=== PATIENT | female | born 1970 | race Caucasian/White ===

== ENCOUNTER 2017-05-15 20:29 | Emergency (ER) | payer MEDICAID, OTHER ==
[~2017-05-15] VITALS: Ht 157.5 cm; Wt 59.1 kg
[2017-05-15] MEDS ORDERED: LORazepam 2 MG/ML VIAL IM ONE (20:45)
[2017-05-15 21:35] VITALS: BP 129/81
== END 2017-05-15 21:39 | disposition home or self-care (01) ==
LOC: EMS 20:29
DX: R45.1 Restlessness and agitation (principal); F15.10 Other stimulant abuse, uncomplicated; F17.210 Nicotine dependence, cigarettes, uncomplicated; Z02.89 Encounter for other administrative examinations
CPT/HCPCS: 96372; 99283; J2060

== ENCOUNTER 2022-08-27 18:19 | Inpatient (IN) | payer MEDICAID, OTHER ==
[~2022-08-27] VITALS: Ht 165.1 cm; Wt 63.7 kg
[2022-08-27 19:01] LABS: APPEARANCE,URINE CLEAR (CLEAR); BILIRUBIN,URINE NEGATIVE (NEGATIVE); GLUCOSE, URINE (UA) NEGATIVE (NEGATIVE); KETONES,URINE NEGATIVE (NEGATIVE); LEUKOCYTE ESTERASE ,URINE MODERATE (NEGATIVE); NITRATE,URINE NEGATIVE (NEGATIVE); OCCULT BLOOD,URINE NEGATIVE (NEGATIVE); PH,URINE 5.5 (5.0-8.0); PROTEIN,URINE NEGATIVE (NEGATIVE); SPECIFIC GRAVITIY, URINE 1.022 (1.003-1.030); UROBILINOGEN,URINE <=1.0 mg/dL (<=1.0)
[2022-08-27 19:08] LABS: AMPHET/METH SCREEN,URINE NEGATIVE (NEGATIVE); BARBITURATE SCREEN, URINE NEGATIVE (NEGATIVE); BENZODIAZEPINES SCREEN,URINE NEGATIVE (NEGATIVE); CANNABINOID SCREEN,URINE POSITIVE (NEGATIVE); COCAINE SCREEN,URINE NEGATIVE (NEGATIVE); METHADONE SCREEN, URINE NEGATIVE (NEGATIVE); OPIATE SCREEN,URINE NEGATIVE (NEGATIVE); PHENCYCLIDINE SCREEN,URINE NEGATIVE (NEGATIVE)
[2022-08-27 19:11] LABS: BASOPHILS % (AUTO) 0.9 % (0.0-2.0); EOSINOPHILS % (AUTO) 2.5 % (1.0-6.0); HEMATOCRIT 38.5 % (36-46); HEMOGLOBIN 12.5 g/dL (12.0-16.0); LYMPHOCYTES # (AUTO) 2.6 K/uL (1.0-4.8); LYMPHOCYTES % (AUTO) 46.9 % (22.0-44.0); MEAN CORPUSCULAR HEMOGLOBIN 28.3 pg (26.0-34.0); MEAN CORPUSCULAR HGB CONC 32.6 G/dL (31.0-37.0); MEAN CORPUSCULAR VOLUME 87 fL (80-100); MONOCYTES # (AUTO) 0.4 K/uL (0.1-1.0); MONOCYTES % (AUTO) 7.1 % (2.0-9.0); NEUTROPHILS # (AUTO) 2.4 K/uL (1.8-7.7); NEUTROPHILS % (AUTO) 42.6 % (40.0-70.0); PLATELET COUNT (AUTO) 216 K/uL (150-450); RED BLOOD CELL COUNT(AUTO) 4.43 MIL/uL (4.00-5.20); RED CELL DISTRIBUTION WIDTH 15.3 % (11.5-14.5)
[2022-08-27 19:18] LABS: ANION GAP 5 mmol/L (8-16); CALCIUM, TOTAL 9.2 mg/dL (8.8-10.5); CARBON DIOXIDE 29 mmol/L (22-29); CHLORIDE 102 mmol/L (98-107); CREATININE 0.48 mg/dL (0.60-1.30); GLOMERULAR FILTR. RATE CALC > 60 mL/min (>60); GLUCOSE,RANDOM 90 mg/dL (70-110); POTASSIUM 4.2 mmol/L (3.5-5.1); SODIUM SERUM 136 mmol/L (136-145)
[2022-08-27 19:22] LABS: BACTERIA,URINE Few /HPF (None Seen); RBC,URINE 0-2 /HPF (0-2); SQUAMOUS EPITHELIAL CELL,UR Few /LPF (None Seen)
[2022-08-27 19:37] LABS: ALANINE AMINOTRANSFERASE 80 U/L (12-78); ALBUMIN 3.6 g/dL (3.4-5.0); ALKALINE PHOSPHATASE 66 U/L (46-116); ASPARTATE AMINOTRANSFERASE 28 U/L (15-37); BILIRUBIN,TOTAL 0.2 mg/dL (0.1-1.0); HCG,QUANTITATIVE 4 mIU/mL (0-6); THYROID STIMULATING HORMONE 1.93 uIU/mL (0.36-3.74); TOTAL PROTEIN, SERUM 7.8 g/dL (6.4-8.2)
[2022-08-28] MEDS: LORazepam 2 MG TABLET PO PRN ×2 (02:22→20:46)
[2022-08-28] MEDS: HALOPERIDOL 5 MG TABLET PO PRN (02:22)
[2022-08-28 02:35] LABS: COVID AG,FIA SOURCE NASOPHARYNGEAL
[2022-08-28] MEDS ORDERED: IBUPROFEN 600 MG TABLET PO ONE (13:30)
[2022-08-28 17:41] VITALS: BP 111/76; PULSE 75; RESP 18; TEMP 97; O2SAT 99
[2022-08-28] MEDS: ZOLPIDEM TARTRATE 10 MG TABLET PO PRN (20:46)
[2022-08-28] MEDS ORDERED: CloNIDine HCL 0.1 MG TABLET PO PRN (21:15)
[2022-08-28] MEDS ORDERED: ALBUTEROL SULFATE HFA 90 MCG/PUFF 8 GM INHALER IH PRN (21:15)
[2022-08-28] MEDS ORDERED: ACETAMINOPHEN 325 MG TABLET PO PRN (21:15)
[2022-08-28] MEDS ORDERED: LOPERAMIDE HCL 2 MG CAPSULE PO PRN (21:15)
[2022-08-28] MEDS ORDERED: PETROLATUM,WHITE 28 GM JELLY TP PRN (21:15)
[2022-08-28] MEDS ORDERED: DOCUSATE SODIUM 100 MG CAPSULE PO PRN (21:15)
[2022-08-28] MEDS ORDERED: MAG HYDROX/AL HYDROX/SIMETH ES 30 ML SUSPENSION UDCUP PO PRN (21:15)
[2022-08-28] MEDS ORDERED: IBUPROFEN 400 MG TABLET PO PRN (21:15)
[2022-08-28] MEDS ORDERED: ONDANSETRON HCL 4 MG TABLET PO PRN (21:15)
[2022-08-28] MEDS ORDERED: NICOTINE 14 MG/24 HOUR PATCH TD PRN (21:15)
[2022-08-28] MEDS ORDERED: GuaiFENesin/D-METHORPHAN [SUGAR-FREE] 200-20MG/10 ML SYRUP UDCUP PO PRN (21:15)
[2022-08-28] MEDS ORDERED: MAGNESIUM HYDROXIDE SUSPENSION 30 ML UDCUP PO PRN (21:15)
[2022-08-28 22:09] VITALS: BP 115/74; PULSE 78; RESP 18; TEMP 97.2
[2022-08-28] MEDS: DENTURE CLEANSER TABLET [8'S] DT PRN (22:53)
[2022-08-29 08:41] LABS: BASOPHILS % (AUTO) 0.9 % (0.0-2.0); EOSINOPHILS % (AUTO) 3.1 % (1.0-6.0); HEMATOCRIT 37.9 % (36-46); HEMOGLOBIN 12.7 g/dL (12.0-16.0); LYMPHOCYTES % (AUTO) 37.9 % (22.0-44.0); MEAN CORPUSCULAR HEMOGLOBIN 28.9 pg (26.0-34.0); MEAN CORPUSCULAR HGB CONC 33.7 G/dL (31.0-37.0); MEAN CORPUSCULAR VOLUME 86 fL (80-100); MONOCYTES # (AUTO) 0.3 K/uL (0.1-1.0); MONOCYTES % (AUTO) 5.3 % (2.0-9.0); NEUTROPHILS # (AUTO) 2.8 K/uL (1.8-7.7); NEUTROPHILS % (AUTO) 52.8 % (40.0-70.0); PLATELET COUNT (AUTO) 209 K/uL (150-450); RED BLOOD CELL COUNT(AUTO) 4.41 MIL/uL (4.00-5.20)
[2022-08-29 08:49] LABS: HEMOGLOBIN A1C 5.6 % (3.8-5.6)
[2022-08-29 08:51] VITALS: BP 97/58; PULSE 67; RESP 18; TEMP 97.6; O2SAT 97
[2022-08-29 09:03] LABS: ALANINE AMINOTRANSFERASE 83 U/L (12-78); ALBUMIN 3.4 g/dL (3.4-5.0); ALKALINE PHOSPHATASE 64 U/L (46-116); ANION GAP 9 mmol/L (8-16); ASPARTATE AMINOTRANSFERASE 31 U/L (15-37); BILIRUBIN,TOTAL 0.4 mg/dL (0.1-1.0); CALCIUM, TOTAL 9.2 mg/dL (8.8-10.5); CARBON DIOXIDE 28 mmol/L (22-29); CHLORIDE 100 mmol/L (98-107); CHOL/HDL RATIO 3.1 (3.9-5.7); CHOLESTEROL 199 mg/dL (131-200); CREATININE 0.55 mg/dL (0.60-1.30); GLOMERULAR FILTR. RATE CALC > 60 mL/min (>60); GLUCOSE,RANDOM 155 mg/dL (70-110); HDL CHOLESTEROL 64 mg/dL (40-60); POTASSIUM 3.9 mmol/L (3.5-5.1); SODIUM SERUM 137 mmol/L (136-145); TOTAL PROTEIN, SERUM 7.7 g/dL (6.4-8.2); TRIGLYCERIDES 99 mg/dL (15-150)
[2022-08-29 09:04] LABS: LDL CHOL (CALC.) 115 mg/dL (0-130); THYROID STIMULATING HORMONE 1.97 uIU/mL (0.36-3.74)
[2022-08-29] MEDS: OLANZapine 5 MG TABLET PO SCH (10:47)
[2022-08-29] MEDS: LORazepam 2 MG TABLET PO PRN ×3 (10:47→17:20)
[2022-08-29] MEDS: OLANZapine 10 MG TABLET PO SCH ×2 (16:01→21:28)
[2022-08-29] MEDS: HALOPERIDOL 5 MG TABLET PO PRN (17:21)
[2022-08-29 21:06] VITALS: BP 100/64; PULSE 70; RESP 18; TEMP 97.6; O2SAT 97
[2022-08-29] MEDS: ZOLPIDEM TARTRATE 10 MG TABLET PO PRN (21:28)
[2022-08-29] MEDS: DENTURE CLEANSER TABLET [8'S] DT PRN (23:14)
[2022-08-30 08:30] VITALS: RESP 18
[2022-08-30] MEDS: OLANZapine 5 MG TABLET PO SCH (08:31)
[2022-08-30] MEDS: OLANZapine 10 MG TABLET PO SCH (21:11)
[2022-08-30] MEDS: ZOLPIDEM TARTRATE 10 MG TABLET PO PRN (21:12)
[2022-08-30 21:32] VITALS: BP 123/68; PULSE 80; RESP 19; TEMP 97.2; O2SAT 99
[2022-08-31] MEDS: OLANZapine 5 MG TABLET PO SCH (07:46)
[2022-08-31 08:27] VITALS: BP 118/64; PULSE 71; RESP 17; TEMP 97.8; O2SAT 96
[2022-08-31] MEDS ORDERED: OLAN5TAB52 PO (10:17)
[2022-08-31] MEDS ORDERED: OLAN10TA74 PO (10:17)
== END 2022-08-31 16:30 | DRG 750 ==
LOC: EMS 18:23 → 3EC 08-28 16:02
PROVIDERS: ADMIT Psychiatry & Neurology Child & Adolescent Psychiatry; ATTEND Psychiatry & Neurology Child & Adolescent Psychiatry
DX: F25.0 Schizoaffective disorder, bipolar type (principal); E86.0 Dehydration; D64.9 Anemia, unspecified; Z60.8 Other problems related to social environment; G47.00 Insomnia, unspecified; R74.01 Elevation of levels of liver transaminase levels; Z20.822 Contact with and (suspected) exposure to COVID-19; Z89.511 Acquired absence of right leg below knee; Z87.891 Personal history of nicotine dependence
CPT/HCPCS: 80053; 80061; 80307; 81001; 83036; 84443; 84702; 85025; 87081; 99285; G0480

== ENCOUNTER 2023-05-12 16:29 | Inpatient (IN) | payer MEDICAID, OTHER ==
[~2023-05-12] VITALS: Ht 162.6 cm; Wt 61.7 kg
[~2023-05-12 16:29] MED LIST: OLAN10TA74 PO; OLAN5TAB52 PO
[2023-05-12 19:19] LABS: APPEARANCE,URINE CLEAR (CLEAR); BILIRUBIN,URINE NEGATIVE (NEGATIVE); COLOR,URINE YELLOW (YELLOW); GLUCOSE, URINE (UA) NEGATIVE (NEGATIVE); KETONES,URINE NEGATIVE (NEGATIVE); LEUKOCYTE ESTERASE ,URINE LARGE (NEGATIVE); NITRATE,URINE NEGATIVE (NEGATIVE); OCCULT BLOOD,URINE NEGATIVE (NEGATIVE); PH,URINE 7.5 (5.0-8.0); PH,URINE DRUG SCREEN 7.5 (5.0-8.0); PROTEIN,URINE TRACE mg/dL (NEGATIVE); SPECIFIC GRAVITIY, URINE 1.029 (1.003-1.030)
[2023-05-12 19:24] LABS: ALCOHOL, URINE DRUG SCREEN NEGATIVE (NEGATIVE); AMPHET/METH SCREEN,URINE NEGATIVE (NEGATIVE); BARBITURATE SCREEN, URINE NEGATIVE (NEGATIVE); BENZODIAZEPINES SCREEN,URINE NEGATIVE (NEGATIVE); CANNABINOID SCREEN,URINE NEGATIVE (NEGATIVE); COCAINE SCREEN,URINE NEGATIVE (NEGATIVE); METHADONE SCREEN, URINE NEGATIVE (NEGATIVE); OPIATE SCREEN,URINE NEGATIVE (NEGATIVE); PHENCYCLIDINE SCREEN,URINE NEGATIVE (NEGATIVE)
[2023-05-12 19:54] LABS: RBC,URINE None Seen /HPF (0-2); SQUAMOUS EPITHELIAL CELL,UR Few /LPF (None Seen)
[2023-05-12 19:55] LABS: BACTERIA,URINE Rare /HPF (None Seen)
[2023-05-12 21:35] LABS: BASOPHILS % (AUTO) 0.9 % (0.0-2.0); EOSINOPHILS % (AUTO) 3.6 % (1.0-6.0); HEMATOCRIT 37.2 % (36-46); HEMOGLOBIN 12.6 g/dL (12.0-16.0); LYMPHOCYTES # (AUTO) 2.4 K/uL (1.0-4.8); LYMPHOCYTES % (AUTO) 46.5 % (22.0-44.0); MEAN CORPUSCULAR HEMOGLOBIN 30.4 pg (26.0-34.0); MEAN CORPUSCULAR HGB CONC 33.8 G/dL (31.0-37.0); MEAN CORPUSCULAR VOLUME 90 fL (80-100); MONOCYTES # (AUTO) 0.4 K/uL (0.1-1.0); MONOCYTES % (AUTO) 8.6 % (2.0-9.0); NEUTROPHILS # (AUTO) 2.1 K/uL (1.8-7.7); NEUTROPHILS % (AUTO) 40.4 % (40.0-70.0); PLATELET COUNT (AUTO) 238 K/uL (150-450); RED BLOOD CELL COUNT(AUTO) 4.15 MIL/uL (4.00-5.20); WHITE BLOOD COUNT (AUTO) 5.1 K/uL (4.5-11.0)
[2023-05-12 21:48] LABS: ALANINE AMINOTRANSFERASE 78 U/L (12-78); ALKALINE PHOSPHATASE 47 U/L (46-116); ASPARTATE AMINOTRANSFERASE 44 U/L (15-37); BILIRUBIN,TOTAL 0.2 mg/dL (0.1-1.0); CALCIUM, TOTAL 8.8 mg/dL (8.8-10.5); CARBON DIOXIDE 33 mmol/L (22-29); CREATININE 0.62 mg/dL (0.60-1.30); GLOMERULAR FILTR. RATE CALC > 60 mL/min (>60); GLUCOSE,RANDOM 111 mg/dL (70-110); TOTAL PROTEIN, SERUM 6.8 g/dL (6.4-8.2); UREA NITROGEN, BLOOD 20 mg/dL (7-18)
[2023-05-12 21:50] LABS: ALCOHOL, BLOOD (SERUM) < 3 mg/dL (0-10)
[2023-05-12 22:03] LABS: ANION GAP 5 mmol/L (8-16); CHLORIDE 102 mmol/L (98-107); POTASSIUM 3.7 mmol/L (3.5-5.1); SODIUM SERUM 140 mmol/L (136-145)
[2023-05-12 22:04] LABS: ALBUMIN 3.1 g/dL (3.4-5.0)
[2023-05-12 23:15] LABS: COVID AG,FIA SOURCE NASAL SWAB
[2023-05-12 23:38] LABS: SARS-COV2 (COVID) ANTIGEN,FIA Negative (Negative)
[2023-05-13] MEDS: CEPHALEXIN MONOHYDRATE 500 MG CAPSULE PO ONE (01:25)
[2023-05-13] MEDS ORDERED: BACITRACIN 28 GM OINTMENT TP PRN (05:45)
[2023-05-13] MEDS ORDERED: ALBUTEROL SULFATE HFA 90 MCG/PUFF 8 GM INHALER IH PRN (05:45)
[2023-05-13] MEDS ORDERED: ONDANSETRON HCL 4 MG TABLET PO PRN (05:45)
[2023-05-13] MEDS ORDERED: OMEPRAZOLE 20 MG CAPSULE PO PRN (05:45)
[2023-05-13] MEDS ORDERED: BENZOCAINE/MENTHOL LOZENGE PO PRN (05:45)
[2023-05-13] MEDS ORDERED: CloNIDine HCL 0.1 MG TABLET PO PRN (05:45)
[2023-05-13] MEDS ORDERED: MAG HYDROX/ALUMINUM HYD/SIMETH ES 30 ML SUSPENSION UDCUP PO PRN (05:45)
[2023-05-13] MEDS ORDERED: LOPERAMIDE HCL 2 MG CAPSULE PO PRN (05:45)
[2023-05-13 09:00] VITALS: BP 119/68; PULSE 76; RESP 16; TEMP 97.5; O2SAT 98
[2023-05-13] MEDS: CEPHALEXIN MONOHYDRATE 500 MG CAPSULE PO SCH (09:27)
[2023-05-13] MEDS: IBUPROFEN 600 MG TABLET PO PRN (09:27)
[2023-05-13] MEDS: LORazepam 2 MG TABLET PO PRN (09:27)
[2023-05-13 20:45] VITALS: BP 118/68; PULSE 91; RESP 18; TEMP 97.8; O2SAT 98
[2023-05-14 08:51] VITALS: RESP 18
[2023-05-14] MEDS ORDERED: INFLUENZA VIRUS VACCINE QVS 2023-24 (6MO+)/PF 60 MCG/0.5 ML SYRINGE IM. ONE (12:00)
[2023-05-14] MEDS: OLANZapine 7.5 MG TABLET PO SCH (20:03)
[2023-05-15 03:39] VITALS: RESP 16
[2023-05-15 08:23] VITALS: BP 111/74; PULSE 74; RESP 16; TEMP 97.6; O2SAT 97
[2023-05-15] MEDS ORDERED: HALOPERIDOL LACTATE 5 MG/ML VIAL ONE (17:28)
[2023-05-15] MEDS ORDERED: DiphenhydrAMINE HCL 50 MG/ML VIAL ONE (17:28)
[2023-05-15] MEDS: DiphenhydrAMINE HCL 50 MG/ML VIAL IM ONE (17:39)
[2023-05-15] MEDS: LORazepam 2 MG/ML VIAL IM ONE (17:39)
[2023-05-15] MEDS: HALOPERIDOL LACTATE 5 MG/ML VIAL IM ONE (17:40)
[2023-05-15 21:28] VITALS: BP 97/70; PULSE 85; RESP 15; TEMP 97.4; O2SAT 95
[2023-05-16 08:14] VITALS: RESP 18
[2023-05-16 21:56] VITALS: BP 109/78; PULSE 100; RESP 18; TEMP 97.2; O2SAT 98
[2023-05-17 08:22] VITALS: BP 116/78; PULSE 79; RESP 16; TEMP 97.6; O2SAT 98
[2023-05-17] MEDS ORDERED: TRAZ-252 PO (17:09)
[2023-05-17] MEDS ORDERED: FLUO20CA36 PO (17:09)
[2023-05-17] MEDS: DiphenhydrAMINE HCL 50 MG/ML VIAL IM ONE (17:41)
[2023-05-17 18:23] VITALS: BP 118/77; PULSE 78; RESP 17; TEMP 97.7
[2023-05-17] MEDS: ACETAMINOPHEN 325 MG TABLET PO PRN (18:24)
[2023-05-17] MEDS: NICOTINE 21 MG/24 HOUR PATCH TD SCH (18:24)
[2023-05-17 20:09] VITALS: BP 124/77; PULSE 71; RESP 17; TEMP 97.8
[2023-05-17] MEDS: BENZTROPINE MESYLATE 2 MG TABLET PO SCH (20:22)
[2023-05-17] MEDS: OLANZapine 10 MG TABLET PO SCH (22:00)
[2023-05-18] MEDS: HALOPERIDOL 5 MG TABLET PO PRN (07:59)
[2023-05-18 08:31] VITALS: BP 105/64; PULSE 84; RESP 18; TEMP 98; O2SAT 99
[2023-05-18 20:30] VITALS: BP 120/69; PULSE 87; RESP 16; TEMP 97.8; O2SAT 98
[2023-05-19 09:19] VITALS: BP 118/67; PULSE 70; RESP 18; TEMP 97.6; O2SAT 98
[2023-05-19 21:46] VITALS: BP 112/67; PULSE 88; RESP 16; TEMP 97.4; O2SAT 98
[2023-05-20 08:35] VITALS: BP 112/58; PULSE 67; RESP 18; TEMP 96.9; O2SAT 99
[2023-05-20 20:16] VITALS: BP 127/78; PULSE 86; TEMP 98.4; O2SAT 98
[2023-05-21 08:36] VITALS: BP 114/74; PULSE 82; RESP 16; TEMP 97.9; O2SAT 99
[2023-05-21 23:49] VITALS: BP 132/74; PULSE 83; RESP 18; TEMP 98; O2SAT 97
[2023-05-22 08:55] VITALS: BP 100/63; PULSE 70; RESP 16; TEMP 97.9; O2SAT 98
[2023-05-22] MEDS: ZOLPIDEM TARTRATE 10 MG TABLET PO PRN (20:06)
[2023-05-22 21:52] VITALS: BP 125/76; PULSE 79; RESP 16; TEMP 97.8; O2SAT 99
[2023-05-23 09:46] VITALS: BP 112/61; PULSE 100; RESP 17; TEMP 97.8; O2SAT 98
[2023-05-23 20:34] VITALS: BP 134/74; PULSE 100; RESP 18; TEMP 98; O2SAT 98
[2023-05-24] MEDS: PETROLATUM,WHITE 28 GM JELLY TP PRN (08:25)
[2023-05-24 08:44] VITALS: BP 100/65; PULSE 94; RESP 18; TEMP 97.6; O2SAT 99
[2023-05-24] MEDS: MAGNESIUM HYDROXIDE SUSPENSION 30 ML UDCUP PO PRN (09:30)
[2023-05-24 10:00] VITALS: BP 105/60; PULSE 80; RESP 18
[2023-05-24] MEDS: OLANZapine 7.5 MG TABLET PO SCH (20:12)
[2023-05-24 22:38] VITALS: BP 110/68; PULSE 78; RESP 18; TEMP 98.2
[2023-05-25 08:27] VITALS: BP 112/72; PULSE 82; RESP 16; TEMP 98; O2SAT 96
[2023-05-25 21:54] VITALS: BP 106/69; PULSE 79; RESP 16; TEMP 98; O2SAT 98
[2023-05-26 08:24] VITALS: BP 117/65; PULSE 85; RESP 18; TEMP 97.6; O2SAT 100
[2023-05-26 20:15] VITALS: BP 121/77; PULSE 90; RESP 20; TEMP 97.6; O2SAT 99
[2023-05-27 08:32] VITALS: BP 118/73; PULSE 82; RESP 16; TEMP 98; O2SAT 99
[2023-05-27 21:02] VITALS: BP 117/67; PULSE 96; RESP 18; TEMP 97.4; O2SAT 96
[2023-05-28 08:17] VITALS: BP 104/64; PULSE 91; RESP 17; TEMP 97.6; O2SAT 99
[2023-05-28 21:10] VITALS: BP 117/61; PULSE 89; RESP 17; TEMP 97.1; O2SAT 100
[2023-05-29 08:15] VITALS: BP 112/74; PULSE 76; RESP 16; TEMP 97.6; O2SAT 98
[2023-05-29 12:00] VITALS: BP 106/66; PULSE 99; RESP 16; TEMP 97.7; O2SAT 100
[2023-05-29] MEDS: DOCUSATE SODIUM 100 MG CAPSULE PO PRN (12:00)
[2023-05-29 20:35] VITALS: BP 119/75; PULSE 100; RESP 18; TEMP 98; O2SAT 100
[2023-05-29 23:35] VITALS: RESP 18
[2023-05-30 00:39] VITALS: RESP 16
[2023-05-30 08:23] VITALS: BP 107/63; PULSE 91; RESP 18; TEMP 97.8; O2SAT 98
[2023-05-30 22:20] VITALS: BP 108/60; PULSE 98; RESP 18; TEMP 96.7; O2SAT 96
[2023-05-31 08:39] VITALS: BP 126/74; PULSE 84; RESP 16; TEMP 98; O2SAT 99
[2023-05-31 20:14] VITALS: BP 108/65; PULSE 94; RESP 18; TEMP 97.7; O2SAT 98
[2023-06-01 09:34] VITALS: BP 101/57; PULSE 93; RESP 18; TEMP 97.8; O2SAT 97
[2023-06-01 20:00] VITALS: BP 110/62; PULSE 100; RESP 19; TEMP 97.9; O2SAT 98
[2023-06-02 08:15] VITALS: BP 100/61; PULSE 77; RESP 16; TEMP 97.8; O2SAT 100
[2023-06-02 20:21] VITALS: BP 107/64; PULSE 87; RESP 18; TEMP 97.7; O2SAT 87
[2023-06-03 08:47] VITALS: BP 102/66; PULSE 77; RESP 16; TEMP 97.9; O2SAT 97
[2023-06-03 20:04] VITALS: BP 101/61; PULSE 84; RESP 17; TEMP 97; O2SAT 99
[2023-06-04 08:07] VITALS: BP 106/62; PULSE 83; RESP 16; TEMP 97.6; O2SAT 98
[2023-06-04 20:46] VITALS: BP 117/70; PULSE 97; RESP 18; TEMP 97.5; O2SAT 98
[2023-06-05 08:30] VITALS: BP 112/64; PULSE 74; RESP 16; TEMP 98.2; O2SAT 97
[2023-06-05 22:09] VITALS: BP 102/59; PULSE 79; RESP 18; TEMP 97.8; O2SAT 97
[2023-06-06 11:38] VITALS: BP 109/68; PULSE 71; RESP 18; TEMP 97.7; O2SAT 99
[2023-06-06 22:44] VITALS: BP 115/70; PULSE 68; RESP 17; TEMP 97.5; O2SAT 97
[2023-06-07 08:11] VITALS: BP 113/76; PULSE 83; RESP 16; TEMP 97.6; O2SAT 98
[2023-06-07 20:09] VITALS: BP 102/61; PULSE 93; RESP 18; TEMP 97.8; O2SAT 98
[2023-06-08 08:13] VITALS: BP 104/66; PULSE 72; RESP 16; TEMP 97.6; O2SAT 96
[2023-06-08 20:09] VITALS: BP 106/67; PULSE 85; RESP 17; TEMP 96.6; O2SAT 100
[2023-06-09 08:03] VITALS: BP 110/61; PULSE 78; RESP 18; TEMP 97.9; O2SAT 99
[2023-06-09 21:55] VITALS: BP 132/79; PULSE 76; RESP 19; TEMP 96.7; O2SAT 99
[2023-06-10 08:28] VITALS: BP 100/65; PULSE 72; RESP 16; TEMP 97.6; O2SAT 96
[2023-06-10] MEDS ORDERED: BENZ2TAB71 PO (13:46)
[2023-06-10] MEDS ORDERED: OLAN7.5T22 PO (13:48)
== END 2023-06-10 15:01 | disposition home or self-care (01) | DRG 750 ==
LOC: EMS 16:34 → B3A 05-13 03:32
PROVIDERS: ADMIT Psychiatry & Neurology Psychiatry; ATTEND Psychiatry & Neurology Psychiatry
DX: F25.0 Schizoaffective disorder, bipolar type (principal); R45.851 Suicidal ideations; F41.9 Anxiety disorder, unspecified; N39.0 Urinary tract infection, site not specified; G47.00 Insomnia, unspecified; K59.00 Constipation, unspecified; Z20.822 Contact with and (suspected) exposure to COVID-19; F15.10 Other stimulant abuse, uncomplicated; F10.90 Alcohol use, unspecified, uncomplicated; Z87.891 Personal history of nicotine dependence; Z89.511 Acquired absence of right leg below knee; Z79.899 Other long term (current) drug therapy
CPT/HCPCS: 80053; 80164; 80307; 81001; 85025; 87086; 87186; 99285; G0480; J1200; J1630; J2060

== ENCOUNTER 2023-09-21 11:34 | Inpatient (IN) | payer MEDICAID, OTHER ==
[~2023-09-21] VITALS: Ht 157.5 cm; Wt 60.9 kg
[~2023-09-21 11:34] MED LIST changes: +BENZ2TAB84 PO; -OLAN10TA74 PO; -OLAN5TAB52 PO; +OLAN7.5T22 PO
[2023-09-21 13:18] LABS: BASOPHILS % (AUTO) 0.5 % (0.0-2.0); HEMATOCRIT 34.6 % (36-46); HEMOGLOBIN 11.5 g/dL (12.0-16.0); LYMPHOCYTES # (AUTO) 2.1 K/uL (1.0-4.8); LYMPHOCYTES % (AUTO) 33.7 % (22.0-44.0); MEAN CORPUSCULAR HEMOGLOBIN 30.1 pg (26.0-34.0); MEAN CORPUSCULAR HGB CONC 33.3 G/dL (31.0-37.0); MEAN CORPUSCULAR VOLUME 90 fL (80-100); MONOCYTES # (AUTO) 0.4 K/uL (0.1-1.0); MONOCYTES % (AUTO) 6.8 % (2.0-9.0); NEUTROPHILS # (AUTO) 3.5 K/uL (1.8-7.7); PLATELET COUNT (AUTO) 213 K/uL (150-450); RED BLOOD CELL COUNT(AUTO) 3.83 MIL/uL (4.00-5.20); RED CELL DISTRIBUTION WIDTH 13.2 % (11.5-14.5); WHITE BLOOD COUNT (AUTO) 6.2 K/uL (4.5-11.0)
[2023-09-21 13:24] LABS: COVID AG,FIA SOURCE NASAL SWAB
[2023-09-21 13:26] LABS: ANION GAP 6 mmol/L (8-16); CALCIUM, TOTAL 8.3 mg/dL (8.8-10.5); CARBON DIOXIDE 29 mmol/L (22-29); CHLORIDE 105 mmol/L (98-107); CREATININE 0.51 mg/dL (0.60-1.30); GLOMERULAR FILTR. RATE CALC > 60 mL/min (>60); GLUCOSE,RANDOM 103 mg/dL (70-110); POTASSIUM 3.7 mmol/L (3.5-5.1); SODIUM SERUM 140 mmol/L (136-145); UREA NITROGEN, BLOOD 12 mg/dL (7-18)
[2023-09-21 13:28] LABS: ALCOHOL, BLOOD (SERUM) < 3 mg/dL (0-10)
[2023-09-21 13:46] LABS: SARS-COV2 (COVID) ANTIGEN,FIA Negative (Negative)
[2023-09-21 16:02] LABS: PH,URINE DRUG SCREEN 6.5 (5.0-8.0)
[2023-09-21 16:10] LABS: ALCOHOL, URINE DRUG SCREEN NEGATIVE (NEGATIVE); AMPHET/METH SCREEN,URINE POSITIVE (NEGATIVE); BARBITURATE SCREEN, URINE NEGATIVE (NEGATIVE); BENZODIAZEPINES SCREEN,URINE NEGATIVE (NEGATIVE); CANNABINOID SCREEN,URINE NEGATIVE (NEGATIVE); COCAINE SCREEN,URINE NEGATIVE (NEGATIVE); METHADONE SCREEN, URINE NEGATIVE (NEGATIVE); OPIATE SCREEN,URINE NEGATIVE (NEGATIVE); PHENCYCLIDINE SCREEN,URINE NEGATIVE (NEGATIVE)
[2023-09-21] MEDS ORDERED: ZOLPIDEM TARTRATE 10 MG TABLET PO PRN (19:00)
[2023-09-21] MEDS: HALOPERIDOL 5 MG TABLET PO PRN (20:07)
[2023-09-21] MEDS: LORazepam 2 MG TABLET PO PRN (20:08)
[2023-09-21 22:44] VITALS: O2SAT 98
[2023-09-22 00:37] VITALS: BP 108/59; PULSE 60; RESP 16; TEMP 97.6; O2SAT 97
[2023-09-22] MEDS ORDERED: IBUPROFEN 600 MG TABLET PO PRN (06:15)
[2023-09-22] MEDS ORDERED: BENZOCAINE/MENTHOL LOZENGE PO PRN (06:15)
[2023-09-22] MEDS ORDERED: BACITRACIN 28 GM OINTMENT TP PRN (06:15)
[2023-09-22] MEDS ORDERED: MAGNESIUM HYDROXIDE SUSPENSION 30 ML UDCUP PO PRN (06:15)
[2023-09-22] MEDS ORDERED: CloNIDine HCL 0.1 MG TABLET PO PRN (06:15)
[2023-09-22] MEDS ORDERED: LOPERAMIDE HCL 2 MG CAPSULE PO PRN (06:15)
[2023-09-22] MEDS ORDERED: ALBUTEROL SULFATE HFA 90 MCG/PUFF 8 GM INHALER IH PRN (06:15)
[2023-09-22] MEDS ORDERED: ACETAMINOPHEN 325 MG TABLET PO PRN (06:15)
[2023-09-22] MEDS ORDERED: MAG HYDROX/ALUMINUM HYD/SIMETH ES 30 ML SUSPENSION UDCUP PO PRN (06:15)
[2023-09-22] MEDS ORDERED: ONDANSETRON HCL 4 MG TABLET PO PRN (06:15)
[2023-09-22 11:32] VITALS: BP 110/68; PULSE 66; RESP 17; TEMP 98; O2SAT 97
[2023-09-22 20:27] VITALS: BP 115/65; PULSE 88; RESP 17; TEMP 97.1; O2SAT 98
[2023-09-22] MEDS: OLANZapine 7.5 MG TABLET PO SCH (20:35)
[2023-09-23 08:11] VITALS: BP 99/59; PULSE 54; RESP 16; TEMP 97.8; O2SAT 97
[2023-09-23 20:25] VITALS: BP 110/68; PULSE 67; RESP 17; TEMP 98.6; O2SAT 98
[2023-09-24 14:05] VITALS: BP 123/86; PULSE 102; RESP 18; TEMP 98.6; O2SAT 96
[2023-09-24 20:00] VITALS: BP 117/70; PULSE 92; RESP 16; TEMP 97.8; O2SAT 97
[2023-09-25 08:15] VITALS: BP 103/66; PULSE 90; RESP 16; TEMP 97.5; O2SAT 95
[2023-09-25 20:29] VITALS: BP 112/70; PULSE 83; RESP 18; TEMP 96.8; O2SAT 95
[2023-09-26 08:18] VITALS: BP 111/79; PULSE 100; RESP 16; TEMP 97.3; O2SAT 96
[2023-09-26 20:50] VITALS: BP 118/64; PULSE 85; RESP 17; TEMP 97.2; O2SAT 98
[2023-09-27 08:21] VITALS: BP 108/75; PULSE 69; RESP 16; TEMP 98.2; O2SAT 96
[2023-09-27 21:20] VITALS: BP 106/70; PULSE 84; RESP 17; TEMP 96.8; O2SAT 98
[2023-09-28 18:03] VITALS: BP 110/71; PULSE 86; RESP 17; TEMP 97.2
[2023-09-28 20:50] VITALS: BP 110/74; PULSE 84; RESP 16; TEMP 97.5; O2SAT 98
[2023-09-29 08:49] LABS: APPEARANCE,URINE CLEAR (CLEAR); BILIRUBIN,URINE NEGATIVE (NEGATIVE); COLOR,URINE LIGHT YELLOW (YELLOW); GLUCOSE, URINE (UA) NEGATIVE (NEGATIVE); KETONES,URINE NEGATIVE (NEGATIVE); LEUKOCYTE ESTERASE ,URINE NEGATIVE (NEGATIVE); NITRATE,URINE NEGATIVE (NEGATIVE); OCCULT BLOOD,URINE NEGATIVE (NEGATIVE); PH,URINE 7.5 (5.0-8.0); PROTEIN,URINE NEGATIVE (NEGATIVE); SPECIFIC GRAVITIY, URINE 1.021 (1.003-1.030); UROBILINOGEN,URINE <=1.0 mg/dL (<=1.0)
[2023-09-29 09:20] VITALS: BP 112/64; PULSE 90; RESP 17; TEMP 97.7; O2SAT 97
[2023-09-29 20:00] VITALS: BP 116/73; PULSE 77; RESP 16; TEMP 97.6; O2SAT 98
[2023-09-30 08:46] VITALS: BP 108/69; PULSE 98; RESP 16; TEMP 97.5; O2SAT 98
[2023-09-30 20:15] VITALS: BP 114/76; PULSE 76; RESP 16; TEMP 97.1; O2SAT 99
[2023-10-01 08:39] VITALS: BP 112/73; PULSE 97; RESP 16; TEMP 97; O2SAT 97
[2023-10-01] MEDS: OMEPRAZOLE 20 MG CAPSULE PO PRN (12:55)
[2023-10-01 20:26] VITALS: BP 110/63; PULSE 83; RESP 17; TEMP 97.3; O2SAT 98
[2023-10-02 08:19] VITALS: BP 112/67; PULSE 76; RESP 16; TEMP 97.6; O2SAT 99
[2023-10-02 20:00] VITALS: BP 116/73; PULSE 79; RESP 16; TEMP 97.5; O2SAT 98
[2023-10-03 08:10] VITALS: BP 110/70; PULSE 75; RESP 17; TEMP 98; O2SAT 99
[2023-10-03 20:00] VITALS: BP 111/64; PULSE 78; RESP 17; TEMP 98; O2SAT 99
[2023-10-04 08:18] VITALS: BP 100/62; PULSE 78; RESP 16; TEMP 97.9; O2SAT 97
[2023-10-04 23:24] VITALS: BP 110/66; PULSE 72; RESP 18; TEMP 97.2; O2SAT 99
[2023-10-05 09:28] VITALS: BP 103/62; PULSE 73; RESP 16; TEMP 97.6; O2SAT 95
[2023-10-05 20:00] VITALS: BP 120/65; PULSE 89; RESP 16; TEMP 97.3; O2SAT 98
[2023-10-06 08:13] VITALS: BP 117/67; PULSE 69; RESP 16; TEMP 97.8; O2SAT 96
[2023-10-06 20:12] VITALS: BP 118/74; PULSE 87; RESP 19; TEMP 98
[2023-10-07 08:23] VITALS: BP 96/60; PULSE 83; RESP 16; TEMP 97.4; O2SAT 95
[2023-10-07 20:12] VITALS: BP 121/77; PULSE 84; RESP 16; TEMP 97.3; O2SAT 97
[2023-10-08 08:17] VITALS: BP 111/62; PULSE 76; RESP 16; TEMP 97.8; O2SAT 99
[2023-10-08 22:31] VITALS: BP 108/71; PULSE 88; RESP 17; TEMP 97.8; O2SAT 97
[2023-10-09 08:04] VITALS: BP 98/60; PULSE 64; RESP 16; TEMP 97.4; O2SAT 98
[2023-10-09 20:29] VITALS: BP 112/74; PULSE 91; RESP 18; TEMP 98.4; O2SAT 97
[2023-10-10 08:18] VITALS: BP 107/68; PULSE 91; RESP 18; TEMP 97.6; O2SAT 97
[2023-10-10] MEDS: PETROLATUM,WHITE 28 GM JELLY TP PRN (20:09)
[2023-10-10 20:23] VITALS: BP 123/75; PULSE 96; RESP 17; TEMP 97.2; O2SAT 98
[2023-10-11 07:56] VITALS: BP 99/62; PULSE 79; RESP 16; TEMP 97.6; O2SAT 95
[2023-10-11 11:41] VITALS: BP 120/76; PULSE 82; RESP 16; TEMP 97.6; O2SAT 96
[2023-10-11 20:10] VITALS: BP 107/56; PULSE 75; RESP 16; TEMP 96.9; O2SAT 98
[2023-10-12 08:21] VITALS: BP 113/73; PULSE 78; RESP 16; TEMP 97.2; O2SAT 99
[2023-10-12] MEDS: NICOTINE 21 MG/24 HOUR PATCH TD SCH (18:50)
[2023-10-12 20:09] VITALS: BP 111/69; PULSE 78; RESP 18; TEMP 97.3; O2SAT 97
[2023-10-13 08:25] VITALS: RESP 18
[2023-10-13 21:10] VITALS: BP 112/67; PULSE 82; RESP 18; TEMP 97.9; O2SAT 98
[2023-10-14 08:09] VITALS: BP 116/72; PULSE 73; RESP 16; TEMP 96.9; O2SAT 95
[2023-10-14] MEDS: DOCUSATE SODIUM 100 MG CAPSULE PO PRN (09:34)
[2023-10-14 20:00] VITALS: BP 133/95; PULSE 76; RESP 16; TEMP 98; O2SAT 96
== END 2023-10-15 08:47 | disposition home or self-care (01) | DRG 750 ==
LOC: EMS 11:38 → B3A 23:16
PROVIDERS: ADMIT Psychiatry & Neurology Psychiatry; ATTEND Psychiatry & Neurology Psychiatry
DX: F25.9 Schizoaffective disorder, unspecified (principal); R45.851 Suicidal ideations; Z91.148 Patient's other noncompliance with medication regimen for other reason; F15.10 Other stimulant abuse, uncomplicated; Z20.822 Contact with and (suspected) exposure to COVID-19; F41.9 Anxiety disorder, unspecified; G47.00 Insomnia, unspecified; K59.00 Constipation, unspecified; Z87.891 Personal history of nicotine dependence; Z89.511 Acquired absence of right leg below knee
CPT/HCPCS: 80048; 80307; 81003; 84703; 85025; 99285; G0480

== ENCOUNTER 2023-12-05 17:16 | Inpatient (IN) | payer MEDICAID ==
[~2023-12-05] VITALS: Ht 160 cm; Wt 61.8 kg
[~2023-12-05 17:16] MED LIST changes: -BENZ2TAB84 PO
[2023-12-05 20:43] VITALS: BP 131/76; PULSE 78; RESP 18; TEMP 97; O2SAT 97
[2023-12-05 20:59] VITALS: BP 121/64; PULSE 81; RESP 18; TEMP 96.6
[2023-12-05 23:40] LABS: GLUCOMETER DEV NAME(LOC) POC.BV; POC SARS-COV2 AG, FIA NEGATIVE (NEGATIVE)
[2023-12-06 08:25] VITALS: RESP 18
[2023-12-06 09:08] LABS: APPEARANCE,URINE CLEAR (CLEAR); BILIRUBIN,URINE NEGATIVE (NEGATIVE); COLOR,URINE LIGHT YELLOW (YELLOW); GLUCOSE, URINE (UA) NEGATIVE (NEGATIVE); KETONES,URINE NEGATIVE (NEGATIVE); LEUKOCYTE ESTERASE ,URINE NEGATIVE (NEGATIVE); NITRATE,URINE NEGATIVE (NEGATIVE); OCCULT BLOOD,URINE NEGATIVE (NEGATIVE); PROTEIN,URINE NEGATIVE (NEGATIVE); SPECIFIC GRAVITIY, URINE 1.012 (1.003-1.030); UROBILINOGEN,URINE <=1.0 mg/dL (<=1.0)
[2023-12-06 09:16] LABS: ALCOHOL, URINE DRUG SCREEN NEGATIVE (NEGATIVE); AMPHET/METH SCREEN,URINE NEGATIVE (NEGATIVE); BARBITURATE SCREEN, URINE NEGATIVE (NEGATIVE); BENZODIAZEPINES SCREEN,URINE NEGATIVE (NEGATIVE); CANNABINOID SCREEN,URINE NEGATIVE (NEGATIVE); COCAINE SCREEN,URINE NEGATIVE (NEGATIVE); METHADONE SCREEN, URINE NEGATIVE (NEGATIVE); OPIATE SCREEN,URINE NEGATIVE (NEGATIVE); PHENCYCLIDINE SCREEN,URINE NEGATIVE (NEGATIVE)
[2023-12-06] MEDS ORDERED: LOPERAMIDE HCL 2 MG CAPSULE PO PRN (16:00)
[2023-12-06] MEDS ORDERED: ALBUTEROL SULFATE HFA 90 MCG/PUFF 8 GM INHALER IH PRN (16:00)
[2023-12-06] MEDS ORDERED: MAGNESIUM HYDROXIDE SUSPENSION 30 ML UDCUP PO PRN (16:00)
[2023-12-06] MEDS ORDERED: MAG HYDROX/ALUMINUM HYD/SIMETH ES 30 ML SUSPENSION UDCUP PO PRN (16:00)
[2023-12-06] MEDS ORDERED: OMEPRAZOLE 20 MG CAPSULE PO PRN (16:00)
[2023-12-06] MEDS ORDERED: ONDANSETRON 4 MG TABLET PO PRN (16:00)
[2023-12-06] MEDS ORDERED: CloNIDine HCL 0.1 MG TABLET PO PRN (16:00)
[2023-12-06] MEDS ORDERED: DOCUSATE SODIUM 100 MG CAPSULE PO PRN (16:00)
[2023-12-06] MEDS ORDERED: ACETAMINOPHEN 325 MG TABLET PO PRN (16:00)
[2023-12-06] MEDS ORDERED: BACITRACIN 28 GM OINTMENT TP PRN (16:00)
[2023-12-07 08:19] VITALS: BP 139/72; PULSE 80; RESP 17; TEMP 97.9; O2SAT 96
[2023-12-07] MEDS: OLANZapine 7.5 MG TABLET PO SCH (20:39)
[2023-12-07] MEDS: ZOLPIDEM TARTRATE 10 MG TABLET PO PRN (20:39)
[2023-12-07 21:12] VITALS: BP 99/61; PULSE 65; RESP 18; TEMP 97.3; O2SAT 97
[2023-12-08 08:12] VITALS: BP 127/63; PULSE 80; RESP 16; TEMP 97.3; O2SAT 100
[2023-12-08] MEDS: NICOTINE 14 MG/24 HOUR PATCH TD ONE (12:43)
[2023-12-08] MEDS: INFLUENZA VIRUS VACCINE TVS (6MO+) 2024-25/PF 45 MCG/0.5 ML SYRINGE IM. ONE (18:11)
[2023-12-08 20:17] VITALS: BP 121/77; PULSE 94; RESP 18; TEMP 97.6; O2SAT 99
[2023-12-09 08:20] VITALS: BP 111/77; PULSE 71; RESP 16; TEMP 97.9; O2SAT 98
[2023-12-09] MEDS: NICOTINE 21 MG/24 HOUR PATCH TD SCH (18:47)
[2023-12-09 21:07] VITALS: BP 124/75; PULSE 88; RESP 17; TEMP 97.6; O2SAT 100
[2023-12-10 15:23] VITALS: BP 106/70; PULSE 80; RESP 18; TEMP 96.5; O2SAT 100
[2023-12-10 20:22] VITALS: BP 115/76; PULSE 69; RESP 16; TEMP 96.2; O2SAT 100
[2023-12-11 08:16] VITALS: BP 112/77; PULSE 83; RESP 17; TEMP 97.1; O2SAT 98
[2023-12-11] MEDS: PETROLATUM,WHITE 28 GM JELLY TP PRN (12:53)
[2023-12-11] MEDS: LORazepam 2 MG TABLET PO PRN (14:45)
[2023-12-11 20:13] VITALS: BP 116/60; PULSE 86; RESP 16; TEMP 96.7; O2SAT 98
[2023-12-12 08:07] VITALS: BP 110/68; PULSE 73; RESP 17; TEMP 97.4; O2SAT 96
[2023-12-12] MEDS: IBUPROFEN 600 MG TABLET PO PRN (11:38)
[2023-12-12 21:11] VITALS: BP 115/70; PULSE 98; RESP 16; TEMP 98.1; O2SAT 99
[2023-12-13 08:22] VITALS: BP 102/74; PULSE 77; RESP 18; TEMP 97.9; O2SAT 100
[2023-12-13 11:05] LABS: BASOPHILS % (AUTO) 1.3 % (0.0-2.0); EOSINOPHILS % (AUTO) 3.2 % (1.0-6.0); HEMATOCRIT 40.4 % (36-46); HEMOGLOBIN 13.3 g/dL (12.0-16.0); LYMPHOCYTES # (AUTO) 1.7 K/uL (1.0-4.8); LYMPHOCYTES % (AUTO) 41.1 % (22.0-44.0); MEAN CORPUSCULAR HEMOGLOBIN 30.1 pg (26.0-34.0); MEAN CORPUSCULAR HGB CONC 32.8 G/dL (31.0-37.0); MEAN CORPUSCULAR VOLUME 92 fL (80-100); MONOCYTES # (AUTO) 0.3 K/uL (0.1-1.0); MONOCYTES % (AUTO) 7.5 % (2.0-9.0); NEUTROPHILS % (AUTO) 46.9 % (40.0-70.0); PLATELET COUNT (AUTO) 235 K/uL (150-450); RED CELL DISTRIBUTION WIDTH 14.3 % (11.5-14.5); WHITE BLOOD COUNT (AUTO) 4.2 K/uL (4.5-11.0)
[2023-12-13 11:27] LABS: ALANINE AMINOTRANSFERASE 183 U/L (12-78); ALBUMIN 3.4 g/dL (3.4-5.0); ALKALINE PHOSPHATASE 48 U/L (46-116); ANION GAP 8 mmol/L (8-16); ASPARTATE AMINOTRANSFERASE 82 U/L (15-37); BILIRUBIN,TOTAL 0.2 mg/dL (0.1-1.0); CALCIUM, TOTAL 9.2 mg/dL (8.8-10.5); CARBON DIOXIDE 28 mmol/L (22-29); CHLORIDE 102 mmol/L (98-107); CHOL/HDL RATIO 2.6 (3.9-5.7); CHOLESTEROL 217 mg/dL (131-200); CREATININE 0.39 mg/dL (0.60-1.30); GLOMERULAR FILTR. RATE CALC > 60 mL/min (>60); GLUCOSE,RANDOM 110 mg/dL (70-110); HDL CHOLESTEROL 83 mg/dL (40-60); LDL CHOL (CALC.) 113 mg/dL (0-130); POTASSIUM 4.4 mmol/L (3.5-5.1); SODIUM SERUM 138 mmol/L (136-145); TOTAL PROTEIN, SERUM 7.2 g/dL (6.4-8.2); TRIGLYCERIDES 106 mg/dL (15-150); UREA NITROGEN, BLOOD 24 mg/dL (7-18)
[2023-12-13 13:22] LABS: FREE T4 (FREE THYROXINE) 0.72 ng/dL (0.76-1.46); THYROID STIMULATING HORMONE 2.66 uIU/mL (0.36-3.74)
[2023-12-13 20:13] VITALS: BP 111/62; PULSE 78; RESP 15; TEMP 97; O2SAT 97
[2023-12-14 09:00] VITALS: BP 110/68; PULSE 86; RESP 18; TEMP 97.9; O2SAT 99
[2023-12-14 12:46] VITALS: RESP 18; O2SAT 99
[2023-12-14 13:46] VITALS: RESP 18
[2023-12-14 20:23] VITALS: BP 117/66; PULSE 90; RESP 18; TEMP 98; O2SAT 98
[2023-12-15 08:25] VITALS: BP 100/62; PULSE 82; RESP 17; TEMP 98; O2SAT 95
[2023-12-15 10:31] VITALS: RESP 18; O2SAT 96
[2023-12-15 11:31] VITALS: RESP 17; O2SAT 96
[2023-12-15 20:36] VITALS: BP 126/63; PULSE 86; RESP 18; TEMP 97.4; O2SAT 99
[2023-12-16 08:44] VITALS: BP 121/73; PULSE 68; RESP 16; TEMP 97.3; O2SAT 100
[2023-12-16 10:27] VITALS: RESP 18; O2SAT 100
[2023-12-16 11:27] VITALS: RESP 17; O2SAT 100
[2023-12-16 22:00] VITALS: BP 113/69; PULSE 83; RESP 17; TEMP 98.1; O2SAT 99
[2023-12-17 08:36] VITALS: BP 109/71; PULSE 72; RESP 19; TEMP 97.5; O2SAT 99
[2023-12-17 20:00] VITALS: BP 106/66; PULSE 82; RESP 18; TEMP 97.4; O2SAT 100
[2023-12-17 20:54] VITALS: RESP 18; O2SAT 98
[2023-12-17 21:54] VITALS: RESP 18; O2SAT 99
[2023-12-18 08:11] VITALS: BP 108/61; PULSE 63; RESP 17; TEMP 97.6; O2SAT 98
[2023-12-18] MEDS: HALOPERIDOL 5 MG TABLET PO PRN (14:57)
[2023-12-18 20:19] VITALS: BP 109/70; PULSE 81; RESP 16; TEMP 97.4; O2SAT 99
[2023-12-19 09:07] VITALS: BP 103/65; PULSE 60; RESP 16; TEMP 98; O2SAT 99
[2023-12-19 20:37] VITALS: BP 114/72; PULSE 85; RESP 16; TEMP 97.5; O2SAT 99
[2023-12-20 08:13] VITALS: BP 115/67; PULSE 84; RESP 16; TEMP 97.8; O2SAT 100
[2023-12-20 20:11] VITALS: BP_SYST 118; BP_SYST 155; BP_DIAS 65; BP_DIAS 68; PULSE 76; PULSE 78; RESP 16; TEMP 97.6; TEMP 98.5; O2SAT 100; O2SAT 98
[2023-12-20 21:11] VITALS: RESP 16; O2SAT 97
[2023-12-21 08:10] VITALS: BP 111/67; PULSE 70; RESP 18; TEMP 98.3; O2SAT 98
[2023-12-21 12:55] VITALS: RESP 18
[2023-12-21 13:55] VITALS: RESP 18
[2023-12-21 20:25] VITALS: BP 128/70; PULSE 87; RESP 16; TEMP 96.6; O2SAT 99
[2023-12-22 08:57] VITALS: BP 121/68; PULSE 74; RESP 18; TEMP 98; O2SAT 95
[2023-12-22 20:43] VITALS: BP 109/66; PULSE 91; RESP 16; TEMP 98; O2SAT 97
[2023-12-22 21:43] VITALS: BP 118/62; PULSE 82; RESP 18; TEMP 97.5; O2SAT 96
[2023-12-23 08:24] VITALS: BP 112/63; PULSE 87; RESP 19; TEMP 97.5; O2SAT 98
[2023-12-24 08:26] VITALS: BP 102/59; PULSE 77; RESP 18; TEMP 98.3; O2SAT 97
[2023-12-24 14:45] VITALS: RESP 17
[2023-12-24 15:45] VITALS: RESP 16
[2023-12-24 20:04] VITALS: BP 129/91; PULSE 86; RESP 18; TEMP 96.2
[2023-12-25 08:25] VITALS: RESP 16
[2023-12-25 20:42] VITALS: BP 105/66; PULSE 84; RESP 16; TEMP 97.4
[2023-12-26 08:09] VITALS: BP 96/61; PULSE 70; RESP 17; TEMP 97.7; O2SAT 95
[2023-12-26 20:18] VITALS: BP 111/74; PULSE 75; RESP 17; TEMP 97.6; O2SAT 96
[2023-12-27 08:46] VITALS: BP 104/66; PULSE 71; RESP 19; TEMP 97.4; O2SAT 97
[2023-12-27 21:06] VITALS: BP 111/69; PULSE 70; RESP 17; TEMP 97.5; O2SAT 98
[2023-12-28 08:07] VITALS: BP 114/67; PULSE 100; RESP 17; TEMP 97.6; O2SAT 97
[2023-12-28 20:09] VITALS: BP 120/65; PULSE 98; RESP 16; TEMP 98.5; O2SAT 98
[2023-12-28 21:00] VITALS: RESP 16; O2SAT 98
[2023-12-29 08:11] VITALS: BP 106/61; PULSE 97; RESP 16; TEMP 96.7; O2SAT 100
[2023-12-29] MEDS: BENZOCAINE/MENTHOL LOZENGE PO PRN (18:29)
[2023-12-29 20:16] VITALS: BP 123/77; PULSE 97; RESP 18; TEMP 97.3; O2SAT 97
[2023-12-30 08:03] VITALS: BP 107/73; PULSE 77; RESP 19; TEMP 96.5; O2SAT 98
[2023-12-30 10:11] VITALS: RESP 19; O2SAT 98
[2023-12-30 11:11] VITALS: RESP 18; O2SAT 98
[2023-12-30 20:31] VITALS: BP 128/72; PULSE 99; RESP 18; TEMP 98; O2SAT 96
[2023-12-31 08:41] VITALS: BP 112/63; PULSE 84; RESP 18; TEMP 97.3; O2SAT 97
[2023-12-31 10:18] VITALS: RESP 17
[2023-12-31 11:18] VITALS: RESP 16
== END 2023-12-31 17:24 | disposition left against medical advice (07) | DRG 750 ==
LOC: B2S 20:56
PROVIDERS: ADMIT Psychiatry & Neurology Psychiatry; ATTEND Psychiatry & Neurology Psychiatry
DX: F25.9 Schizoaffective disorder, unspecified (principal); F19.10 Other psychoactive substance abuse, uncomplicated; F41.9 Anxiety disorder, unspecified; G47.00 Insomnia, unspecified; K59.00 Constipation, unspecified; M25.562 Pain in left knee; Z20.822 Contact with and (suspected) exposure to COVID-19; Z53.29 Procedure and treatment not carried out because of patient's decision for other reasons; Z72.0 Tobacco use
CPT/HCPCS: 80053; 80061; 80307; 81003; 84439; 84443; 84703; 85025; 87081; 90686

== ENCOUNTER 2024-01-26 09:07 | Inpatient (IN) | payer MEDICAID ==
[~2024-01-26] VITALS: Ht 165.1 cm; Wt 58.0 kg
[2024-01-26] MEDS ORDERED: ZOLPIDEM TARTRATE 10 MG TABLET PO PRN (10:45)
[2024-01-26] MEDS: OLANZapine 5 MG RAPDIS TABLET PO SCH (11:00)
[2024-01-26 12:01] LABS: GLUCOMETER DEV NAME(LOC) POC.BV; POC SARS-COV2 AG, FIA NEGATIVE (NEGATIVE)
[2024-01-26 12:49] VITALS: BP 105/67; PULSE 96; RESP 18; TEMP 97.5; O2SAT 96
[2024-01-26 13:26] LABS: GLUCOMETER DEV NAME(LOC) BV3S.; GLUCOSE,POINT OF CARE 91 MG/DL (70-110)
[2024-01-26] MEDS ORDERED: ONDANSETRON 4 MG TABLET PO PRN (16:30)
[2024-01-26] MEDS ORDERED: MAGNESIUM HYDROXIDE SUSPENSION 30 ML UDCUP PO PRN (16:30)
[2024-01-26] MEDS ORDERED: ALBUTEROL SULFATE HFA 90 MCG/PUFF 8 GM INHALER IH PRN (16:30)
[2024-01-26] MEDS ORDERED: BACITRACIN 28 GM OINTMENT TP PRN (16:30)
[2024-01-26] MEDS ORDERED: OMEPRAZOLE 20 MG CAPSULE PO PRN (16:30)
[2024-01-26] MEDS ORDERED: MAG HYDROX/ALUMINUM HYD/SIMETH ES 30 ML SUSPENSION UDCUP PO PRN (16:30)
[2024-01-26] MEDS ORDERED: CloNIDine HCL 0.1 MG TABLET PO PRN (16:30)
[2024-01-26] MEDS ORDERED: LOPERAMIDE HCL 2 MG CAPSULE PO PRN (16:30)
[2024-01-26] MEDS ORDERED: DOCUSATE SODIUM 100 MG CAPSULE PO PRN (16:30)
[2024-01-26] MEDS ORDERED: ACETAMINOPHEN 325 MG TABLET PO PRN (16:30)
[2024-01-26] MEDS ORDERED: BENZOCAINE/MENTHOL LOZENGE PO PRN (16:30)
[2024-01-26 20:37] VITALS: BP 112/78; PULSE 98; RESP 18; TEMP 97.8; O2SAT 97
[2024-01-27] MEDS: ESCITALOPRAM OXALATE 10 MG TABLET PO SCH (08:11)
[2024-01-27] MEDS: IBUPROFEN 600 MG TABLET PO PRN (08:24)
[2024-01-27 08:27] VITALS: BP 114/69; PULSE 84; RESP 16; TEMP 96.3; O2SAT 97
[2024-01-27 20:06] VITALS: BP 120/72; PULSE 73; RESP 18; TEMP 97.9; O2SAT 98
[2024-01-28 08:23] VITALS: BP 108/71; PULSE 87; RESP 17; TEMP 96.5; O2SAT 96
[2024-01-28 20:29] VITALS: BP 125/76; PULSE 93; RESP 16; TEMP 97.4; O2SAT 95
[2024-01-29 09:32] VITALS: RESP 16
[2024-01-29 20:11] VITALS: BP 112/73; PULSE 76; RESP 18; TEMP 97; O2SAT 96
[2024-01-30 08:02] VITALS: BP 120/72; PULSE 90; RESP 16; TEMP 96.7; O2SAT 97
[2024-01-30] MEDS: NICOTINE 21 MG/24 HOUR PATCH TD PRN (14:22)
[2024-01-30] MEDS: LORazepam 1 MG TABLET PO PRN (15:27)
[2024-01-30 20:03] VITALS: BP 116/72; PULSE 83; RESP 18; TEMP 97.5
[2024-01-30] MEDS: DOCOSANOL 10% 2 GM CREAM TP SCH (20:35)
[2024-01-31] MEDS: PETROLATUM,WHITE 28 GM JELLY TP PRN (00:50)
[2024-01-31 08:11] VITALS: BP 135/81; PULSE 92; RESP 17; TEMP 98.5; O2SAT 96
[2024-01-31 20:03] VITALS: BP 118/72; PULSE 100; RESP 18; TEMP 97.3
[2024-02-01 08:19] VITALS: BP 116/62; PULSE 72; RESP 16; TEMP 97.6; O2SAT 97
[2024-02-01 20:21] VITALS: BP 113/72; PULSE 92; RESP 19; TEMP 98; O2SAT 100
[2024-02-02 08:18] VITALS: BP 112/69; PULSE 92; RESP 16; TEMP 96.9; O2SAT 98
[2024-02-02 20:51] VITALS: BP 105/60; PULSE 92; RESP 17; TEMP 97; O2SAT 100
[2024-02-03 08:16] VITALS: BP 115/64; PULSE 66; RESP 16; TEMP 97; O2SAT 97
[2024-02-03 23:02] VITALS: BP 101/65; PULSE 67; RESP 18; TEMP 96.9; O2SAT 95
[2024-02-04 09:22] VITALS: BP 118/68; PULSE 74; RESP 16; TEMP 97.3; O2SAT 97
[2024-02-04 20:29] VITALS: BP 114/64; PULSE 68; RESP 17; TEMP 98; O2SAT 96
[2024-02-05 08:12] VITALS: BP 100/64; PULSE 72; RESP 16; TEMP 96.9; O2SAT 96
[2024-02-05 23:55] VITALS: BP 108/60; PULSE 63; RESP 18; O2SAT 98
[2024-02-06 08:18] VITALS: BP 98/60; PULSE 69; RESP 16; TEMP 96.8; O2SAT 96
[2024-02-06 20:08] VITALS: BP 102/70; PULSE 100; RESP 17; TEMP 98; O2SAT 99
[2024-02-07 08:35] VITALS: BP 100/66; PULSE 74; RESP 16; TEMP 97.2; O2SAT 97
[2024-02-07 20:13] VITALS: BP 108/64; PULSE 77; RESP 18; TEMP 97.5; O2SAT 96
[2024-02-08] MEDS: ESCITALOPRAM OXALATE 10 MG TABLET PO SCH (08:12)
[2024-02-08 08:14] VITALS: BP 100/62; PULSE 69; RESP 16; TEMP 97; O2SAT 99
[2024-02-08] MEDS ORDERED: OLAN5TAB94 PO (11:21)
[2024-02-08] MEDS ORDERED: ESCI-8 PO (11:21)
[2024-02-08] MEDS: ChlorproMAZINE HCL 100 MG TABLET PO PRN (12:18)
== END 2024-02-08 17:48 | disposition home or self-care (01) | DRG 750 ==
LOC: B3A 11:34 → UNDOADMIN 11:46 → B3A 02-01 10:31
PROVIDERS: ADMIT Psychiatry & Neurology Psychiatry; ATTEND Psychiatry & Neurology Psychiatry
PROC: GZ52ZZZ Individual Psychotherapy, Cognitive (ICD-10-PCS; principal; 2024-01-31)
PROC: GZHZZZZ Group Psychotherapy (ICD-10-PCS; 2024-01-31)
PROC: GZ56ZZZ Individual Psychotherapy, Supportive (ICD-10-PCS; 2024-01-31)
DX: F25.0 Schizoaffective disorder, bipolar type (principal); R45.851 Suicidal ideations; Z91.148 Patient's other noncompliance with medication regimen for other reason; F41.9 Anxiety disorder, unspecified; Z20.822 Contact with and (suspected) exposure to COVID-19; G47.00 Insomnia, unspecified; K59.00 Constipation, unspecified; Z72.0 Tobacco use
CPT/HCPCS: 82962

== ENCOUNTER 2024-02-17 18:34 | Inpatient (IN) | payer MEDICAID ==
[~2024-02-17] VITALS: Ht 157.5 cm; Wt 64.9 kg
[~2024-02-17 18:34] MED LIST changes: +ESCI-8 PO; +OLAN5TAB94 PO; -OLAN7.5T22 PO
[2024-02-17 19:36] LABS: BASOPHILS % (AUTO) 0.6 % (0.0-2.0); EOSINOPHILS % (AUTO) 3.2 % (1.0-6.0); HEMOGLOBIN 13.9 g/dL (12.0-16.0); LYMPHOCYTES # (AUTO) 2.2 K/uL (1.0-4.8); LYMPHOCYTES % (AUTO) 39.9 % (22.0-44.0); MEAN CORPUSCULAR HEMOGLOBIN 30.3 pg (26.0-34.0); MEAN CORPUSCULAR HGB CONC 33.1 G/dL (31.0-37.0); MEAN CORPUSCULAR VOLUME 92 fL (80-100); MONOCYTES # (AUTO) 0.3 K/uL (0.1-1.0); MONOCYTES % (AUTO) 5.8 % (2.0-9.0); NEUTROPHILS # (AUTO) 2.7 K/uL (1.8-7.7); NEUTROPHILS % (AUTO) 50.5 % (40.0-70.0); PLATELET COUNT (AUTO) 351 K/uL (150-450); RED BLOOD CELL COUNT(AUTO) 4.59 MIL/uL (4.00-5.20); RED CELL DISTRIBUTION WIDTH 13.8 % (11.5-14.5); WHITE BLOOD COUNT (AUTO) 5.4 K/uL (4.5-11.0)
[2024-02-17 19:45] LABS: ANION GAP 6 mmol/L (8-16); CARBON DIOXIDE 34 mmol/L (22-29); CHLORIDE 102 mmol/L (98-107); CREATININE 0.64 mg/dL (0.60-1.30); GLOMERULAR FILTR. RATE CALC > 60 mL/min (>60); GLUCOSE,RANDOM 117 mg/dL (70-110); POTASSIUM 3.3 mmol/L (3.5-5.1); SODIUM SERUM 142 mmol/L (136-145); UREA NITROGEN, BLOOD 8 mg/dL (7-18)
[2024-02-17 20:01] LABS: ALCOHOL, BLOOD (SERUM) < 3 mg/dL (0-10)
[2024-02-17 22:03] LABS: COVID AG,FIA SOURCE NASAL SWAB
[2024-02-17 22:18] LABS: SARS-COV2 (COVID) ANTIGEN,FIA Negative (Negative)
[2024-02-17] MEDS ORDERED: HALOPERIDOL 5 MG TABLET PO PRN (22:30)
[2024-02-17] MEDS ORDERED: LORazepam 2 MG TABLET PO PRN (22:30)
[2024-02-17] MEDS ORDERED: ZOLPIDEM TARTRATE 10 MG TABLET PO PRN (22:30)
[2024-02-17 23:02] LABS: PH,URINE DRUG SCREEN 5.5 (5.0-8.0)
[2024-02-17 23:09] LABS: AMPHET/METH SCREEN,URINE NEGATIVE (NEGATIVE); BARBITURATE SCREEN, URINE NEGATIVE (NEGATIVE); BENZODIAZEPINES SCREEN,URINE NEGATIVE (NEGATIVE); CANNABINOID SCREEN,URINE NEGATIVE (NEGATIVE); COCAINE SCREEN,URINE NEGATIVE (NEGATIVE); METHADONE SCREEN, URINE NEGATIVE (NEGATIVE); OPIATE SCREEN,URINE NEGATIVE (NEGATIVE); PHENCYCLIDINE SCREEN,URINE NEGATIVE (NEGATIVE)
[2024-02-17 23:10] LABS: ALCOHOL, URINE DRUG SCREEN NEGATIVE (NEGATIVE)
[2024-02-17] MEDS: OLANZapine 10 MG TABLET PO ONE (23:37)
[2024-02-18] MEDS ORDERED: HALOPERIDOL 5 MG TABLET PO PRN (01:45)
[2024-02-18 02:00] VITALS: O2SAT 100
[2024-02-18 03:42] VITALS: BP 128/58; PULSE 82; RESP 18; TEMP 98.7; O2SAT 98
[2024-02-18] MEDS ORDERED: -PHARMACY VACCINE NOTE- MISC ONE (05:30)
[2024-02-18 08:11] VITALS: BP 136/77; PULSE 71; RESP 16; TEMP 98.9; O2SAT 96
[2024-02-18] MEDS ORDERED: PROMETHAZINE HCL 25 MG TABLET PO PRN (14:45)
[2024-02-18] MEDS ORDERED: GuaiFENesin/D-METHORPHAN [SUGAR-FREE] 200-20MG/10 ML SYRUP UDCUP PO PRN (14:45)
[2024-02-18] MEDS ORDERED: OLANZapine 5 MG RAPDIS TABLET PO PRN (14:45)
[2024-02-18] MEDS ORDERED: MAGNESIUM HYDROXIDE SUSPENSION 30 ML UDCUP PO PRN (14:45)
[2024-02-18] MEDS ORDERED: HydrOXYzine PAMOATE 50 MG CAPSULE PO PRN (14:45)
[2024-02-18] MEDS ORDERED: LOPERAMIDE HCL 2 MG CAPSULE PO PRN (14:45)
[2024-02-18] MEDS ORDERED: TUBERCULIN, PURIFIED PROTEIN DERIVATIVE 5 TU/0.1 ML SYRINGE ID ONE (14:45)
[2024-02-18] MEDS: THIAMINE 100 MG TABLET PO SCH (16:21)
[2024-02-18] MEDS: POTASSIUM CHLORIDE 20 MEQ ER TABLET PO ONE (19:57)
[2024-02-18 20:03] VITALS: BP 100/61; PULSE 85; RESP 17; TEMP 97
[2024-02-18] MEDS: MELATONIN 5 MG TABLET PO SCH (20:12)
[2024-02-18] MEDS: OLANZapine 10 MG RAPDIS TABLET PO SCH (20:13)
[2024-02-19 08:24] VITALS: BP 119/78; PULSE 76; RESP 16; TEMP 96.9; O2SAT 97
[2024-02-19] MEDS: NALTREXONE HCL 50 MG TABLET PO SCH (08:41)
[2024-02-19] MEDS: MULTIVITAMINS WITH MINERALS, THERAPEUTIC TABLET PO SCH (08:41)
[2024-02-19] MEDS: ESCITALOPRAM OXALATE 10 MG TABLET PO SCH (08:42)
[2024-02-19] MEDS: OMEGA-3/DHA/EPA/FISH OIL 1,000 MG CAPSULE PO SCH (08:42)
[2024-02-19] MEDS: FOLIC ACID 1 MG TABLET PO SCH (08:42)
[2024-02-19] MEDS: LORazepam 2 MG TABLET PO PRN (11:23)
[2024-02-19 20:00] VITALS: BP 109/58; PULSE 80; RESP 17; TEMP 96; O2SAT 96
[2024-02-19] MEDS: DOCOSANOL 10% 2 GM CREAM TP SCH (23:11)
[2024-02-20 08:04] VITALS: BP 119/72; PULSE 83; RESP 16; TEMP 97.6; O2SAT 95
[2024-02-21 00:05] VITALS: RESP 17
[2024-02-21 08:15] VITALS: RESP 18
[2024-02-21 20:25] VITALS: BP 122/88; PULSE 78; RESP 17; TEMP 98.1; O2SAT 97
[2024-02-22 08:15] VITALS: BP 105/77; PULSE 100; RESP 17; TEMP 97.4; O2SAT 96
[2024-02-22 20:00] VITALS: RESP 16
[2024-02-23 08:46] VITALS: BP 118/77; PULSE 73; RESP 16; TEMP 97; O2SAT 97
[2024-02-24 08:16] VITALS: BP 110/74; PULSE 84; RESP 16; TEMP 96.9; O2SAT 98
[2024-02-24 20:09] VITALS: BP 113/63; PULSE 63; RESP 16; TEMP 97.7; O2SAT 96
[2024-02-25 08:22] VITALS: BP 118/69; PULSE 78; RESP 16; TEMP 96.9; O2SAT 97
[2024-02-25 20:38] VITALS: RESP 17
[2024-02-26 08:14] VITALS: BP 118/74; PULSE 80; RESP 16; TEMP 97.6; O2SAT 97
[2024-02-26 20:05] VITALS: BP 116/64; PULSE 69; RESP 17; TEMP 97.1; O2SAT 96
[2024-02-27 08:42] VITALS: BP 109/62; PULSE 85; RESP 16; O2SAT 97
[2024-02-27] MEDS: NICOTINE 21 MG/24 HOUR PATCH TD SCH (08:44)
[2024-02-27 20:13] VITALS: BP 119/66; PULSE 80; RESP 18; TEMP 98
[2024-02-27] MEDS: ZOLPIDEM TARTRATE 10 MG TABLET PO PRN (21:40)
[2024-02-28 08:29] VITALS: BP 102/59; PULSE 78; RESP 16; TEMP 96.6; O2SAT 97
[2024-02-29 08:44] VITALS: BP 103/61; PULSE 69; RESP 16; TEMP 96.7; O2SAT 97
[2024-03-01 08:18] VITALS: RESP 17
[2024-03-01 08:53] VITALS: PULSE 65; RESP 16; TEMP 96.9; O2SAT 96
[2024-03-01 15:55] VITALS: RESP 18
[2024-03-01] MEDS: ACETAMINOPHEN 325 MG TABLET PO PRN (15:56)
[2024-03-01 16:55] VITALS: RESP 18
[2024-03-02 08:38] VITALS: BP 101/57; PULSE 72; RESP 16; TEMP 97; O2SAT 97
[2024-03-02 09:04] VITALS: RESP 17
[2024-03-02 10:04] VITALS: RESP 16
[2024-03-03 08:34] VITALS: BP 101/60; PULSE 80; RESP 16; TEMP 97.1; O2SAT 97
[2024-03-03] MEDS: NICOTINE 21 MG/24 HOUR PATCH TD SCH (10:30)
[2024-03-03 13:47] VITALS: RESP 18; O2SAT 98
[2024-03-03 14:47] VITALS: RESP 16
[2024-03-03 20:50] VITALS: BP 100/60; PULSE 97; RESP 16; TEMP 97.1; O2SAT 98
[2024-03-04 08:52] VITALS: BP 106/58; PULSE 90; RESP 17; TEMP 98; O2SAT 98
[2024-03-04 20:35] VITALS: BP 110/68; PULSE 86; RESP 17; TEMP 98.2; O2SAT 99
[2024-03-05 08:25] VITALS: BP 122/80; PULSE 89; RESP 16; TEMP 97.3; O2SAT 97
[2024-03-05 20:04] VITALS: BP 110/71; PULSE 82; RESP 16; TEMP 97.4; O2SAT 98
[2024-03-06 09:15] VITALS: BP 100/89; PULSE 71; RESP 17; TEMP 97.7; O2SAT 100
[2024-03-06 20:30] VITALS: BP 112/65; PULSE 58; RESP 18; TEMP 97.6; O2SAT 96
[2024-03-07 09:00] VITALS: BP 114/63; PULSE 87; RESP 18; TEMP 97.9; O2SAT 96
[2024-03-07 20:03] VITALS: BP 114/62; PULSE 74; RESP 17; TEMP 97.6; O2SAT 96
[2024-03-08 08:05] VITALS: BP 109/66; PULSE 74; RESP 16; TEMP 97.3; O2SAT 95
[2024-03-08 18:57] VITALS: BP 114/62; PULSE 66; RESP 18; TEMP 98.9; O2SAT 98
[2024-03-08 20:15] VITALS: BP 114/62; PULSE 66; RESP 18; TEMP 98.8; O2SAT 98
[2024-03-09 08:35] VITALS: BP 101/60; PULSE 65; RESP 18; TEMP 97.6; O2SAT 96
[2024-03-09 19:35] VITALS: BP 115/65; PULSE 81; RESP 18; TEMP 98.8; O2SAT 99
[2024-03-10 08:07] VITALS: BP 102/60; PULSE 62; RESP 16; TEMP 97.3; O2SAT 97
[2024-03-10 20:08] VITALS: BP 133/81; PULSE 62; RESP 18; TEMP 97.5; O2SAT 98
[2024-03-11 08:09] VITALS: BP 106/63; PULSE 67; RESP 16; TEMP 96.9; O2SAT 98
[2024-03-11 20:34] VITALS: BP 113/60; PULSE 67; RESP 18; TEMP 97.4; O2SAT 99
[2024-03-12 08:19] VITALS: BP 100/58; PULSE 61; RESP 18; TEMP 97.8; O2SAT 98
[2024-03-12 20:10] VITALS: BP 111/63; PULSE 66; RESP 18; TEMP 97.6; O2SAT 99
[2024-03-13 08:23] VITALS: BP 114/65; PULSE 89; RESP 16; TEMP 97.6; O2SAT 96
[2024-03-13 21:00] VITALS: BP 115/55; PULSE 64; RESP 16; TEMP 97.2; O2SAT 96
[2024-03-14 08:09] VITALS: BP 111/66; PULSE 83; RESP 16; TEMP 96.9; O2SAT 97
[2024-03-14 21:53] VITALS: BP 116/67; PULSE 69; RESP 18; TEMP 98.1; O2SAT 96
[2024-03-15 08:20] VITALS: BP 112/66; PULSE 78; RESP 16; TEMP 96.9; O2SAT 96
[2024-03-15 20:03] VITALS: BP 120/67; PULSE 68; RESP 18; TEMP 97
[2024-03-16 08:07] VITALS: BP 112/58; PULSE 90; RESP 16; TEMP 96.9; O2SAT 97
[2024-03-16 18:15] VITALS: RESP 18
[2024-03-16 19:15] VITALS: RESP 18
[2024-03-16 20:05] VITALS: BP 115/70; PULSE 75; RESP 17; TEMP 97.3; O2SAT 100
[2024-03-17 08:25] VITALS: BP 110/60; PULSE 69; RESP 17; TEMP 97.1; O2SAT 97
[2024-03-17 20:33] VITALS: BP 133/88; PULSE 74; RESP 17; TEMP 97.6; O2SAT 97
[2024-03-18 08:35] VITALS: BP 100/63; PULSE 66; RESP 16; TEMP 96.9; O2SAT 96
[2024-03-18 20:08] VITALS: BP 123/73; PULSE 68; RESP 17; TEMP 97.1; O2SAT 96
[2024-03-18 20:28] VITALS: BP 123/73; PULSE 60; RESP 15; TEMP 97.1; O2SAT 99
[2024-03-18 21:08] VITALS: RESP 17; O2SAT 97
[2024-03-19 08:15] VITALS: BP 103/58; PULSE 80; RESP 16; TEMP 97.8; O2SAT 97
[2024-03-19 08:51] LABS: ANION GAP 7 mmol/L (8-16); CALCIUM, TOTAL 8.8 mg/dL (8.8-10.5); CARBON DIOXIDE 28 mmol/L (22-29); CHLORIDE 102 mmol/L (98-107); CREATININE 0.52 mg/dL (0.60-1.30); GLOMERULAR FILTR. RATE CALC > 60 mL/min (>60); GLUCOSE,RANDOM 75 mg/dL (70-110); POTASSIUM 4.3 mmol/L (3.5-5.1); SODIUM SERUM 137 mmol/L (136-145); UREA NITROGEN, BLOOD 18 mg/dL (7-18)
[2024-03-19] MEDS: MAG HYDROX/ALUMINUM HYD/SIMETH ES 30 ML SUSPENSION UDCUP PO PRN (19:50)
[2024-03-19 20:03] VITALS: BP 111/66; PULSE 83; RESP 18; TEMP 97.8; O2SAT 96
[2024-03-20 08:09] VITALS: BP 103/62; PULSE 68; RESP 16; TEMP 97.6; O2SAT 97
== END 2024-03-20 10:10 | disposition home or self-care (01) | DRG 750 ==
LOC: EMS 18:34 → B3A 02-18 02:51
PROVIDERS: ADMIT Psychiatry & Neurology Psychiatry; ATTEND Psychiatry & Neurology Psychiatry
PROC: GZ52ZZZ Individual Psychotherapy, Cognitive (ICD-10-PCS; principal; 2024-02-18)
PROC: GZ56ZZZ Individual Psychotherapy, Supportive (ICD-10-PCS; 2024-02-18)
DX: F25.9 Schizoaffective disorder, unspecified (principal); R45.851 Suicidal ideations; E87.6 Hypokalemia; F32.A Depression, unspecified; Z20.822 Contact with and (suspected) exposure to COVID-19; F41.9 Anxiety disorder, unspecified; K59.00 Constipation, unspecified; G47.00 Insomnia, unspecified; F15.20 Other stimulant dependence, uncomplicated; Z53.20 Procedure and treatment not carried out because of patient's decision for unspecified reasons; Z89.511 Acquired absence of right leg below knee; Z87.891 Personal history of nicotine dependence
CPT/HCPCS: 80048; 80307; 83036; 84703; 85025; 87081; G0480

== ENCOUNTER 2024-04-02 17:00 | Inpatient (IN) | payer MEDICAID ==
[~2024-04-02] VITALS: Ht 154.9 cm; Wt 61.3 kg
[2024-04-02] MEDS ORDERED: ZOLPIDEM TARTRATE 10 MG TABLET PO PRN (19:00)
[2024-04-02 20:45] LABS: GLUCOMETER DEV NAME(LOC) POC.BV; POC SARS-COV2 AG, FIA NEGATIVE (NEGATIVE)
[2024-04-02 20:57] VITALS: BP 121/77; PULSE 81; RESP 18; TEMP 97.8; O2SAT 100
[2024-04-02] MEDS ORDERED: INFLUENZA VIRUS VACCINE TVS (6MO+) 2024-25/PF 45 MCG/0.5 ML SYRINGE IM. ONE (21:30)
[2024-04-02] MEDS ORDERED: PNEUMOCOCCAL VACCINE POLYVALENT 0.5 ML SYRINGE [PPSV23] IM. ONE (21:45)
[2024-04-03 09:41] VITALS: RESP 18
[2024-04-03] MEDS: OLANZapine 5 MG TABLET PO SCH (16:57)
[2024-04-03 20:17] VITALS: BP 105/69; PULSE 83; RESP 18; TEMP 97.8; O2SAT 99
[2024-04-03] MEDS ORDERED: CloNIDine HCL 0.1 MG TABLET PO PRN (21:00)
[2024-04-03] MEDS ORDERED: BENZOCAINE/MENTHOL LOZENGE PO PRN (21:00)
[2024-04-03] MEDS ORDERED: ONDANSETRON 4 MG TABLET PO PRN (21:00)
[2024-04-03] MEDS ORDERED: MAGNESIUM HYDROXIDE SUSPENSION 30 ML UDCUP PO PRN (21:00)
[2024-04-03] MEDS ORDERED: ALBUTEROL SULFATE HFA 90 MCG/PUFF 8 GM INHALER IH PRN (21:00)
[2024-04-03] MEDS ORDERED: PETROLATUM,WHITE 28 GM JELLY TP PRN (21:00)
[2024-04-03] MEDS ORDERED: LOPERAMIDE HCL 2 MG CAPSULE PO PRN (21:00)
[2024-04-03] MEDS ORDERED: BACITRACIN 28 GM OINTMENT TP PRN (21:00)
[2024-04-03] MEDS ORDERED: MAG HYDROX/ALUMINUM HYD/SIMETH ES 30 ML SUSPENSION UDCUP PO PRN (21:00)
[2024-04-03] MEDS ORDERED: OMEPRAZOLE 20 MG CAPSULE PO PRN (21:00)
[2024-04-03] MEDS ORDERED: DOCUSATE SODIUM 100 MG CAPSULE PO PRN (21:00)
[2024-04-03] MEDS ORDERED: IBUPROFEN 600 MG TABLET PO PRN (21:00)
[2024-04-04 09:01] VITALS: RESP 16
[2024-04-04] MEDS: ESCITALOPRAM OXALATE 10 MG TABLET PO SCH (09:12)
[2024-04-04 20:09] VITALS: BP 129/82; PULSE 87; RESP 18; TEMP 97.9; O2SAT 100
[2024-04-05 12:49] VITALS: BP 123/72; PULSE 82; RESP 47; TEMP 97.8; O2SAT 100
[2024-04-05] MEDS: ACETAMINOPHEN 325 MG TABLET PO PRN (20:10)
[2024-04-05 20:11] VITALS: RESP 18
[2024-04-05 21:11] VITALS: RESP 16
[2024-04-05 21:21] VITALS: BP 119/79; PULSE 81; RESP 18; TEMP 98.1; O2SAT 97
[2024-04-06 09:18] LABS: BASOPHILS % (AUTO) 1.2 % (0.0-2.0); EOSINOPHILS % (AUTO) 3.1 % (1.0-6.0); HEMATOCRIT 40.4 % (36-46); HEMOGLOBIN 13.2 g/dL (12.0-16.0); LYMPHOCYTES # (AUTO) 1.5 K/uL (1.0-4.8); LYMPHOCYTES % (AUTO) 45.5 % (22.0-44.0); MEAN CORPUSCULAR HEMOGLOBIN 29.8 pg (26.0-34.0); MEAN CORPUSCULAR HGB CONC 32.7 G/dL (31.0-37.0); MEAN CORPUSCULAR VOLUME 91 fL (80-100); MONOCYTES # (AUTO) 0.2 K/uL (0.1-1.0); MONOCYTES % (AUTO) 6.5 % (2.0-9.0); NEUTROPHILS # (AUTO) 1.4 K/uL (1.8-7.7); NEUTROPHILS % (AUTO) 43.7 % (40.0-70.0); PLATELET COUNT (AUTO) 268 K/uL (150-450); RED BLOOD CELL COUNT(AUTO) 4.43 MIL/uL (4.00-5.20); RED CELL DISTRIBUTION WIDTH 13.9 % (11.5-14.5); WHITE BLOOD COUNT (AUTO) 3.2 K/uL (4.5-11.0)
[2024-04-06 10:16] LABS: APPEARANCE,URINE CLEAR (CLEAR); BILIRUBIN,URINE NEGATIVE (NEGATIVE); COLOR,URINE LIGHT YELLOW (YELLOW); GLUCOSE, URINE (UA) NEGATIVE (NEGATIVE); KETONES,URINE NEGATIVE (NEGATIVE); LEUKOCYTE ESTERASE ,URINE NEGATIVE (NEGATIVE); NITRATE,URINE NEGATIVE (NEGATIVE); OCCULT BLOOD,URINE NEGATIVE (NEGATIVE); PH,URINE 6.5 (5.0-8.0); PH,URINE DRUG SCREEN 6.5 (5.0-8.0); PROTEIN,URINE NEGATIVE (NEGATIVE); SPECIFIC GRAVITIY, URINE 1.011 (1.003-1.030); UROBILINOGEN,URINE <=1.0 mg/dL (<=1.0)
[2024-04-06 10:28] LABS: ALCOHOL, URINE DRUG SCREEN NEGATIVE (NEGATIVE); AMPHET/METH SCREEN,URINE NEGATIVE (NEGATIVE); BARBITURATE SCREEN, URINE NEGATIVE (NEGATIVE); BENZODIAZEPINES SCREEN,URINE NEGATIVE (NEGATIVE); CANNABINOID SCREEN,URINE NEGATIVE (NEGATIVE); COCAINE SCREEN,URINE NEGATIVE (NEGATIVE); METHADONE SCREEN, URINE NEGATIVE (NEGATIVE); OPIATE SCREEN,URINE NEGATIVE (NEGATIVE); PHENCYCLIDINE SCREEN,URINE NEGATIVE (NEGATIVE)
[2024-04-06 14:17] VITALS: BP 118/73; PULSE 85; RESP 17; TEMP 98.2; O2SAT 98
[2024-04-06 22:29] VITALS: BP 98/56; PULSE 74; RESP 16; TEMP 96.9; O2SAT 94
[2024-04-07 13:17] VITALS: BP 134/67; PULSE 94; RESP 14; TEMP 98.2; O2SAT 97
[2024-04-07 20:20] VITALS: BP 115/62; PULSE 75; RESP 13; TEMP 97.1; O2SAT 97
[2024-04-08 11:52] VITALS: BP 115/61; PULSE 75; RESP 14; TEMP 97.1; O2SAT 98
[2024-04-08] MEDS: LORazepam 2 MG TABLET PO PRN (20:20)
[2024-04-08 20:30] VITALS: BP 117/70; PULSE 72; RESP 18; TEMP 97.7; O2SAT 100
[2024-04-09 08:33] VITALS: BP 129/71; PULSE 78; RESP 16; TEMP 97.2; O2SAT 96
[2024-04-09 22:40] VITALS: BP 122/71; PULSE 71; RESP 17; TEMP 97.2; O2SAT 99
[2024-04-10 09:47] VITALS: BP 117/67; PULSE 74; RESP 16; TEMP 97.3; O2SAT 99
[2024-04-10 20:19] VITALS: BP 107/63; PULSE 70; RESP 19; TEMP 97.6; O2SAT 98
[2024-04-11 13:32] VITALS: BP 116/64; PULSE 68; RESP 17; TEMP 96.4; O2SAT 99
[2024-04-11 21:00] VITALS: BP 111/64; PULSE 98; RESP 16; TEMP 98.8; O2SAT 98
[2024-04-12 08:00] VITALS: BP 111/64; PULSE 66; RESP 14; TEMP 97.4; O2SAT 100
[2024-04-12 20:20] VITALS: BP 131/72; PULSE 65; RESP 20; TEMP 97.6; O2SAT 96
[2024-04-13] MEDS ORDERED: OLAN5TAB52 PO (08:19)
[2024-04-13] MEDS ORDERED: ESCI-8 PO (08:20)
[2024-04-13 08:47] VITALS: BP 102/60; PULSE 67; RESP 18; TEMP 97.2; O2SAT 95
== END 2024-04-13 12:38 | disposition home or self-care (01) | DRG 750 ==
LOC: B2S 19:50
PROVIDERS: ADMIT Psychiatry & Neurology Psychiatry; ATTEND Psychiatry & Neurology Psychiatry
DX: F25.9 Schizoaffective disorder, unspecified (principal); F15.10 Other stimulant abuse, uncomplicated; F32.A Depression, unspecified; Z20.822 Contact with and (suspected) exposure to COVID-19; F41.9 Anxiety disorder, unspecified; R74.01 Elevation of levels of liver transaminase levels; G47.00 Insomnia, unspecified; K59.00 Constipation, unspecified; Z79.899 Other long term (current) drug therapy; Z72.0 Tobacco use; Z59.00 Homelessness unspecified
CPT/HCPCS: 80307; 81003; 85025; 90686; 90732; 36415-L1; 36415-TC; G0008; G0009; Z7610